=== PATIENT | male | born 1975 | race Two or more races ===

== ENCOUNTER 2024-08-07 21:14 | Emergency (ER) | payer OTHER ==
[~2024-08-07] VITALS: Ht 185.4 cm; Wt 149.7 kg
[2024-08-07] MEDS ORDERED: DIVALPROEX SOD500 M1 (21:41)
[2024-08-07] MEDS ORDERED: CLONIDINE HCL 0.1 MG TABLET PO ONE (22:00)
[2024-08-07] MEDS ORDERED: ENALAPRILAT DIHYDRATE 1.25 MG/ML VIAL IV ONE (22:00)
[2024-08-07 22:41] LABS: HEMATOCRIT 52.3 % (39.0-48.0); HEMOGLOBIN 17.6 g/dL (13-16.00); MEAN CORPUSCULAR HEMOGLOBIN 28.9 pg (27.00-32.0); MEAN CORPUSCULAR HGB CONC 33.6 g/dl (32.0-36.0); PLATELET COUNT 172 K/uL (150-450); RED BLOOD COUNT 6.08 M/uL (4.00-6.00); RED CELL DISTRIBUTION WIDTH 14.7 % (11.5-14.5)
[2024-08-07 23:09] LABS: ALBUMIN 3.8 gm/dL (3.4-5.0); BILIRUBIN TOTAL 1.01 mg/dL (0.3-1.2); CALCIUM 9.2 mg/dL (8.5-10.1); CREATININE SERUM 0.88 mg/dL (0.70-1.30); GFR 92.04; GLOBULINA 3.8 G/DL (2.4-3.5); POTASSIUM 3.91 mEq/L (3.5-5.1); TOTAL PROTEIN 7.6 gm/dL (6.4-8.2)
[2024-08-07] MEDS ORDERED: VALSARTAN-HCTZ1 EAC2 PO (23:36)
[2024-08-07] MEDS ORDERED: CRESTOR40 MG PO (23:36)
== END 2024-08-08 00:16 | disposition home or self-care (01) ==
LOC: ER 21:16
PROVIDERS: General Practice
DX: R53.81 Other malaise (principal); I10 Essential (primary) hypertension
CPT/HCPCS: 36415; 96365; 99282; J3490

== ENCOUNTER 2024-11-11 17:59 | Emergency (ER) | payer OTHER ==
[~2024-11-11] VITALS: Ht 177.8 cm; Wt 146.1 kg
[~2024-11-11 17:59] MED LIST: CRESTOR40 MG PO; DIVALPROEX SOD500 M1; VALSARTAN-HCTZ1 EAC2 PO
[2024-11-11 18:52] VITALS: BP 128/71; O2SAT 97
[2024-11-11] MEDS ORDERED: CEFTRIAXONE SODIUM 2,000 MG VIAL IM STA (19:58)
[2024-11-11] MEDS ORDERED: HYDROCODONE/CHLORPHEN P-STIREX 5 ML ML PO STA (19:59)
[2024-11-11] MEDS ORDERED: CEFTRIAXONE SODIUM 2,000 MG VIAL ONE (20:07)
[2024-11-11] MEDS ORDERED: LIDOCAINE HCL 1% 10ML VIAL ONE (20:07)
== END 2024-11-11 20:17 | disposition home or self-care (01) ==
LOC: ER 18:01
DX: J06.9 Acute upper respiratory infection, unspecified (principal)

== ENCOUNTER 2024-12-02 21:07 | Emergency (ER) | payer OTHER ==
[~2024-12-02] VITALS: Ht 185.4 cm; Wt 150.6 kg
[2024-12-02] MEDS ORDERED: VYVANSE50 MG (21:19)
[2024-12-03] MEDS ORDERED: KETOROLAC TROMETHAMINE 10 MG TABLET PO STA (01:30)
[2024-12-03] MEDS ORDERED: KETOROLAC TROMETHAMINE 10 MG TABLET PO ONE (01:51)
[2024-12-03] MEDS ORDERED: KETO10TA2 PO (02:19)
== END 2024-12-03 02:25 ==
LOC: ER 21:09
DX: M25.571 Pain in right ankle and joints of right foot (principal); I10 Essential (primary) hypertension

== ENCOUNTER 2024-12-13 17:44 | Emergency (ER) | payer OTHER ==
[~2024-12-13] VITALS: Ht 185.4 cm; Wt 136.1 kg
[~2024-12-13 17:44] MED LIST changes: +KETO10TA2 PO; +VYVANSE50 MG
[2024-12-13] MEDS ORDERED: DIPHENHYDRAMINE HCL 50 MG/ML VIAL 1ML ONE (19:41)
[2024-12-13] MEDS ORDERED: METHYLPREDNISOLONE SOD SUCC 125 MG VIAL ONE (19:41)
[2024-12-13] MEDS ORDERED: METHYLPREDNISOLONE SOD SUCC 125 MG VIAL IV ONE (19:45)
[2024-12-13] MEDS ORDERED: DIPHENHYDRAMINE HCL 50 MG/ML VIAL 1ML IV ONE (19:45)
[2024-12-13 20:09] LABS: HEMATOCRIT 48.9 % (39.0-48.0); HEMOGLOBIN 16.4 g/dL (13-16.00); MEAN CELL VOLUME 87.4 fL (80.0-100.00); MEAN CORPUSCULAR HEMOGLOBIN 29.4 pg (27.00-32.0); MEAN CORPUSCULAR HGB CONC 33.6 g/dl (32.0-36.0); PLATELET COUNT 161 K/uL (150-450)
[2024-12-13] MEDS ORDERED: MEDROLPACK PO (22:57)
[2024-12-13] MEDS ORDERED: ZYRTEC10 MG PO (22:57)
== END 2024-12-13 23:07 | disposition home or self-care (01) ==
LOC: ER 17:46
PROVIDERS: Preventive Medicine Public Health & General Preventive Medicine
DX: R21 Rash and other nonspecific skin eruption (principal); T78.40XA Allergy, unspecified, initial encounter; I10 Essential (primary) hypertension

== ENCOUNTER 2025-04-07 11:03 | Emergency (ER) | payer OTHER ==
[~2025-04-07] VITALS: Ht 190.5 cm; Wt 129.3 kg
[~2025-04-07 11:03] MED LIST changes: +MEDROLPACK PO; +ZYRTEC10 MG PO
[2025-04-07] MEDS ORDERED: ZEPBOUND2.5 MG/0.5 SQ (11:49)
[2025-04-07] MEDS ORDERED: KETOROLAC TROMETHAMINE 60 MG VIAL IM STA (12:20)
[2025-04-07] MEDS ORDERED: KETOROLAC TROMETHAMINE 60 MG VIAL IM ONE ×2 (12:38→13:35)
[2025-04-07 13:10] LABS: BASO % 0.4 % (0.1-1.2); EOS # 0.13 (0.04-0.54); EOS % 1.8 % (0.7-7.0); HEMATOCRIT 55.7 % (40.1-51.0); HEMOGLOBIN 18.4 g/dL (13.7-17.5); LYMPH # 3.35 (1.18-3.74); LYMPH % 46.9 % (19.3-53.1); MEAN CORPUSCULAR HEMOGLOBIN 27.9 pg (25.6-32.2); MONO % 8.4 % (4.7-12.5); NEUT # 3.02 (1.56-6.13); NEUT % 42.4 % (34.0-71.1); PLATELET COUNT 207 K/uL (163-369); RED BLOOD COUNT 6.59 M/uL (4.63-6.08); RED CELL DISTRIBUTION WIDTH 14.5 % (11.6-14.4)
[2025-04-07 13:57] LABS: COVID-19 AG NEGATIVE (NEGATIVE)
[2025-04-07 14:00] LABS: INFLUENZA A AG NEGATIVE (NEGATIVE)
== END 2025-04-07 14:49 | disposition home or self-care (01) ==
LOC: ER 12:11
PROVIDERS: General Practice
DX: B34.9 Viral infection, unspecified (principal); Z20.822 Contact with and (suspected) exposure to COVID-19; I10 Essential (primary) hypertension